=== PATIENT | female | born 1990 | race Caucasian/White ===

== ENCOUNTER 2018-05-13 11:33 | Emergency (ER) | payer OTHER ==
[2018-05-13 12:12] VITALS: BP 109/56
[2018-05-13] MEDS ORDERED: DEXAMETHASONE 10 MG/ML VIAL PO STA (14:06)
[2018-05-13] MEDS ORDERED: CLINDAMYCIN 150 MG CAPSULE PO STA (14:07)
--- NOTE | 2018-05-13 14:10 | ED Physician Documentation ---
History of Present Illness - Stated complaint Stated Complaint: SORE THROAT/RASH - Chief complaint Chief Complaint: Ext Problem - History obtained from History obtained from: Patient - History of Present Illness Timing: How many days ago (4) Pain level max: 6 Pain level now: 4 - Additonal information Additional information: 27-year-old female presents to the emergency department for sore throat for the past 3-4 days. Worse with swallowing. Nothing makes it better. Had a rapid strep test a few days ago. Sore throat is worsened since that time, more on the left side. Sent here for evaluation for possible peritonsillar abscess. Review of Systems Constitutional: reports: Fever, Chills Nose: denies: Rhinorrhea / runny nose, Congestion Throat: reports: Sore throat GI: denies: Vomiting : denies: Now EGA Skin: reports: Rash (across the chest.) PD PAST MEDICAL HISTORY - Past Medical History Past Medical History: No - Past Surgical History Past Surgical History: No - Present Medications Home Medications: Ambulatory Orders Medication Instructions Recorded Confirmed Clindamycin HCl [Clindamycin 300MG 300 mg PO Q6H #40 capsule 05/13/18 CAP] Hydrocodone/Acetaminophen 1 - 2 each PO Q6H PRN #14 tablet 05/13/18 [Hydrocodon-Acetaminophen 5-325] predniSONE [Deltasone] 10 mg PO [id number] #42 tab 05/13/18 - Allergies Allergies/Adverse Reactions: Allergies Allergy/AdvReac Type Severity Reaction Status Date / Time No Known Drug Allergies Allergy Verified 05/13/18 12:09 PD ED PE NORMAL - Vitals Vital signs reviewed: Yes - General General: Alert and oriented X 3, No acute distress - HEENT HEENT: Ears normal, Moist mucous membranes, Other (Posterior oropharyngeal erythema with tonsillar exudates. Left tonsil is swollen and uvula is slightly deviated to the right.) - Neck Neck: Supple, no meningeal sign, Other (Shotty anterior lymphadenopathy) - Cardiac Cardiac: RRR - Respiratory Respiratory: No respiratory distress, Clear bilaterally - Derm Derm: Warm and dry, Other (Sandpapery rash across the anterior chest) - Extremities Extremities: No edema - Neuro Neuro: Alert and oriented X 3 Results - Vitals Vitals: Vital Signs - 24 hr 05/13/18 12:09 Temperature 36.8 C Heart Rate 90 Respiratory 16 Rate Blood Pressure 109/56 L O2 Saturation 100 Oxygen O2 Source Room air - Labs Labs: Laboratory Tests 05/13/18 13:03 Group A Strep Rapid POSITIVE H PD MEDICAL DECISION MAKING - ED course Complexity details: reviewed results, re-evaluated patient, considered differential, d/w patient ED course: 27-year-old female presents the emergency department what appears to be an early peritonsillar abscess. Will place on steroids and clindamycin for home. We will have her follow-up with ENT on Wednesday or Wednesday. She is well-appearing, nontoxic. Afebrile. Tolerating p.o. without difficulty. Patient counseled regarding signs and symptoms for which I believe and urgent re-evaluation would be necessary. Patient with good understanding of and agreement to plan and is comfortable going home at this time This document was made in part using voice recognition software. While efforts are made to proofread this document, sound alike and grammatical errors may occur. Departure - Departure Disposition: Home, Self Care Clinical Impression: Strep pharyngitis with scarlet fever, Peritonsillar abscess Condition: Good Instructions: ED [place], ED Peritonsillar Infec Abx No I andD Follow-Up: [facility] [Provider Group] - 05/16/18 Prescriptions: Clindamycin HCl [Clindamycin 300MG CAP] 300 mg PO Q6H #40 capsule Hydrocodone/Acetaminophen [Hydrocodon-Acetaminophen 5-325] 1 - 2 each PO Q6H PRN #14 tablet PRN Reason: pain predniSONE [Deltasone] 10 mg PO [id number] #42 tab Comments: Take all antibiotics and steroids until gone. Return if you worsen. Call ENT on Wednesday for an appointment on Wednesday or Wednesday to see how you are doing. you may need a referral from your primary care provider. Do not drink alcohol or drive while on narcotic pain medicine. Note that many narcotic pain relievers also contain tylenol/acetaminophen. Please ensure that your total dose of acetaminophen from all sources does not exceed 3 grams (3000mg) per day. You may constipated on this medication, take a stool softener such as "Colace" twice a day while you are on it. Also recommend a [id number] laxative such as senna or MiraLAX any day that you do not have a bowel movement. If you received narcotic pain medication in the emergency department, do not drive or operate machinery for the next 24 hours. Discharge Date/Time: 05/13/18 14:19
[2018-05-13] MEDS ORDERED: CHERRY SYRUP 10 ML UDC PO ONE (14:15)
== END 2018-05-13 14:19 | disposition home or self-care (01) ==
LOC: ED 11:33
DX: A38.9 Scarlet fever, uncomplicated (principal); J36 Peritonsillar abscess
CPT/HCPCS: 87430; 99282; 99283; A9270

== ENCOUNTER 2021-05-01 09:28 | Outpatient (CLI) | payer OTHER ==
--- NOTE | 2021-05-01 12:17 | XRAY Report ---
PROCEDURE: Lumbar Spine Complete INDICATIONS: STRAIN OF LOWER BACK TECHNIQUE: 5 views of the lumbar spine were acquired. COMPARISON: None. FINDINGS: Bones: 5 [id number] vertebrae are present. There is normal bony alignment. No vertebral body compression fractures. No suspicious bony lesions. Oblique views shows no gross pars defects. No significant bony foraminal stenosis. Soft tissues: Overlying bowel gas pattern is normal. No suspicious soft tissue calcifications. IMPRESSION: Unremarkable radiographic examination of lumbar spine. Reviewed by: Hemant Shaver MD on 05/01/2021 12:16 PM PST Approved by: Hemant Shaver MD on 05/01/2021 12:16 PM PST Station ID: [id number]
== END 2021-05-01 23:59 | disposition home or self-care (01) ==
LOC: DI.N 09:28
PROVIDERS: ATTEND Nurse Practitioner
DX: S39.012A Strain of muscle, fascia and tendon of lower back, initial encounter (principal)